=== PATIENT | male | born 1965 | race African-American/Black ===

== ENCOUNTER 2019-07-29 08:27 | Inpatient (IN) | payer OTHER ==
[~2019-07-29] VITALS: Ht 185.4 cm; Wt 182.7 kg
[~2019-07-29 08:27] MED LIST: CLON0.2T; GLIP-218; METF-370
[2019-07-29] MEDS ORDERED: CLINDAMYCIN 900MG IV 50 ML IV ONE (09:00)
[2019-07-29] MEDS ORDERED: PIPERACILLIN-TAZOB 3.375GM 100 ML IV ONE (09:00)
[2019-07-29] MEDS ORDERED: SODIUM CHLORIDE 0.9% 1,000 ML IV ONE ×2 (09:00)
[2019-07-29 09:43] LABS: Basophils # (auto) 0 uL; Eosinophils # (auto) 0.1 uL; Hematocrit 38.1 % (41.0-53.0); Lymphocytes # (auto) 0.5 uL; Monocytes # (auto) 0.3 uL; Neutrophils % (auto) 83.5 % (37.0-80.0); Nucleated Red Blood Cells % 0.1 %
[2019-07-29 09:45] LABS: Basophils % (auto) 0.8 % (0.0-2.0); Eosinophils % (auto) 2.2 % (0.0-7.0); Hemoglobin 11.8 g/dL (13.5-17.5); Lymphocytes % (auto) 8.4 % (10.0-50.0); Mean Corpuscular Hemoglobin 23.1 pg (28.0-32.0); Mean Corpuscular Hgb Conc. 30.8 g/dL (32.0-36.0); Mean Corpuscular Volume 74.9 fL (80.0-100.0); Monocytes % (auto) 5.1 % (0.0-12.0); Platelet Count (auto) 153 10^3/uL (140-450); Red Blood Cells 5.09 10^6/uL (4.5-5.90); Red Cell Distribution Width 18.6 % (11.8-14.3)
[2019-07-29 10:00] LABS: Alanine Aminotransferase 35 U/L (16-61); Albumin 2.8 g/dL (3.4-5.0); Anion Gap 6 (5-15); Aspartate Aminotransferase 31 U/L (15-37); Blood Urea Nitrogen 15 mg/dL (7-18); Calcium 8.2 mg/dL (8.5-10.1); Carbon Dioxide 28 mmol/L (21-32); Chloride 106 mmol/L (98-107); GFR African American 92 mL/min; GFR Non-African American 76 mL/min; Glucose 106 mg/dL (74-106); Potassium 4.1 mmol/L (3.5-5.1); Sodium 140 mmol/L (136-145)
[2019-07-29 10:04] LABS: Alkaline Phosphatase 81 U/L (45-117); Bilirubin, Total 0.7 mg/dL (0.2-1.0); Total Protein 8.1 g/dL (6.4-8.2)
[2019-07-29 10:05] LABS: INR 1.11 (0.9-1.15); Partial Thromboplastin Time 30.2 sec (23.64-32.05)
[2019-07-29] MEDS ORDERED: ACETAMINOPHEN 500 MG TAB PO PRN (11:30)
[2019-07-29] MEDS ORDERED: VANCOMYCIN PER PHARMACY 0 MG IV SCH (11:30)
[2019-07-29] MEDS ORDERED: NITROGLYCERIN 0.4 MG SL TAB SL PRN (11:30)
[2019-07-29] MEDS ORDERED: MORPHINE SULF INJ 2 MG/ML SYRINGE 1ML IV PRN ×2 (11:30)
[2019-07-29] MEDS ORDERED: hydrALAZINE HCL 20 MG/ML VL IV PRN (11:45)
[2019-07-29] MEDS: PIPERACILLIN-TAZOB 3.375GM 100 ML IV SCH ×2 (12:00→18:40)
[2019-07-29] MEDS ORDERED: FUROSEMIDE 40 MG/4 ML VIAL IV ONE (12:15)
[2019-07-29 12:26] LABS: Urine Bacteria NONE SEEN /hpf (None Seen); Urine Blood 1+ /uL (Negative); Urine Mucus FEW (None Seen); Urine Specific Gravity 1.017 (1.001-1.035); Urine WBC 15 /hpf (0 - 3)
[2019-07-29] MEDS: VANCOMYCIN 1GM/250ML 250 ML IV SCH ×2 (16:04→23:33)
--- NOTE | 2019-07-29 17:16 | NUR ---
WOUND CARE NOTE: Wound care in to see patient per wound care request regarding "Diabetic Foot Ulcer" that are noted present on admission. Patient is 53 y/o male with admitting diagnosis of RLE Cellulitis. Patient with history of htn, DM. Patient is resting in ER bed #15. He's awake, alert and oriented. Patient is in no stated pain at this time. He's self turn and reposition and his Missael score is 17. Patient reported that he moves around at home using cane. Skin/wound assessment done with the assistance of patient's nurse, JOSEP Curry. Noted patient's Rt. foot stump has open full thickness wound measuring 4x1.5x0.5cm. Wound bed is dusky red with yellow rolled hyperkeratotic wound edges, dark hyperpigmented skin to dorsal aspect of R foot, minimal seropurulent drainage noted on old dressing, foul odor noted. Patient reported that he had Rt. foot partial amputation two years ago in [place], since then his Rt. foot stump wound has not totally healed. Cleansed patient's Rt foot wound with wound cleanser, patted dry with gauze, fill wound cavity with 1 inch iodoform packing strips, covered with abd pad, wrapped with Kerlix and secured with tape. Patient denies any other wound. Patient tolerated well. Photograph of patient's R foot wound are taken for reference. RECOMMENDATION: Nursing to continue Daily/PRN dressing change to R Foot wound per MD order,Podiatry consult, Dietary consult, elevate affected extremity on pillows, continue monitoring by wound care while patient is hospitalized. Addendum: 07/29/19 at 1839 by Saloni Morfin RN Amended: Links added.
[2019-07-29 21:20] VITALS: BP 106/63
--- NOTE | 2019-07-29 21:20 | NUR ---
Telemetry admit from ER KURT REYNA admitted to Telemetry unit. Patient oriented to STACY MAYBERRY, RN primary RN, unit, room, bed, and unit policies regarding patient care and visiting hours. Patient now on continuous telemetry monitoring, tele box #54 and telemetry reading on arrival to unit is SR. Patient placed on bedside oxygen, weighed by bed scale and encouraged to call if they need something. All questions and concerns addressed, patient verbalized understanding. Dressing to right foot is CDI. 20g IV in right upper chest intact and patent. Dressing reinforced.
--- NOTE | 2019-07-29 21:50 | NUR ---
Excess moisture noted in ABD folds. Area cleansed and dried. Antifungal cream applied. Patient educated on keeping the area clean and dry to maintain skin integrity. Patient verbalizes understanding.
[2019-07-29] MEDS: CARVEDILOL 3.125 MG TAB PO SCH (22:33)
[2019-07-29] MEDS: ENALAPRIL MALEATE 2.5 MG TAB PO SCH (22:33)
[2019-07-29] MEDS: FAMOTIDINE 20 MG TAB PO SCH (22:34)
[2019-07-30] MEDS: PIPERACILLIN-TAZOB 3.375GM 100 ML IV SCH ×4 (00:45→18:10)
[2019-07-30] MEDS ORDERED: LISI30TA36 PO (01:34)
[2019-07-30 04:30] VITALS: BP 135/65
[2019-07-30 05:52] LABS: Eosinophils # (auto) 0.1 uL; Hemoglobin 11.5 g/dL (13.5-17.5); Lymphocytes # (auto) 0.4 uL; Monocytes # (auto) 0.3 uL; Neutrophils # (auto) 4.6 uL; White Blood Cell 5.5 10^3/uL (4.4-10.8)
[2019-07-30 05:54] LABS: Basophils # (auto) 0.1 uL; Eosinophils % (auto) 2.5 % (0.0-7.0); Hematocrit 37.8 % (41.0-53.0); Lymphocytes % (auto) 7.1 % (10.0-50.0); Mean Corpuscular Hemoglobin 23.1 pg (28.0-32.0); Mean Corpuscular Hgb Conc. 30.6 g/dL (32.0-36.0); Mean Corpuscular Volume 75.6 fL (80.0-100.0); Neutrophils % (auto) 83.4 % (37.0-80.0); Platelet Count (auto) 148 10^3/uL (140-450); Red Blood Cells 4.99 10^6/uL (4.5-5.90); Red Cell Distribution Width 18.2 % (11.8-14.3)
[2019-07-30 06:13] LABS: Potassium 4.5 mmol/L (3.5-5.1)
[2019-07-30 06:16] LABS: BUN/Creatinine Ratio 11.5
[2019-07-30] MEDS: VANCOMYCIN 1GM/250ML 250 ML IV SCH ×3 (06:50→22:52)
--- NOTE | 2019-07-30 08:53 | NUR ---
PT RESTING IN BED, NO DISTRESS NOTED. PT REPORTS 4/10 PAIN IN BILATERAL EXTREMITIES, 2 PLUS NON PITTING EDEMA NOTED. KERLIX BANDAGE NOTED ON RLE. PT REPORTS HE IS ABLE TO AMBULATE TO BATHROOM. WILL CONTINUE TO MONITOR.
[2019-07-30 09:00] VITALS: BP 116/55
[2019-07-30] MEDS ORDERED: INFLUENZA QUAD 2019-2020 0.5ml SYRG IM ONE (10:00)
[2019-07-30 11:08] LABS: % Iron Saturation 18.3 % (20-55)
[2019-07-30] MEDS: FUROSEMIDE 20 MG/2 ML VIAL IV SCH (11:13)
[2019-07-30] MEDS: FAMOTIDINE 20 MG TAB PO SCH ×2 (11:15→21:35)
[2019-07-30] MEDS: ENALAPRIL MALEATE 2.5 MG TAB PO SCH ×2 (11:18→21:34)
[2019-07-30] MEDS: CARVEDILOL 3.125 MG TAB PO SCH ×2 (11:18→21:34)
--- NOTE | 2019-07-30 11:18 | NUR ---
Nutrition consult/assessment Notes Please see attached link for complete assessment Est. Needs ABW 125 [id number] kcal (17-20 kcal/kgBW), 125-137 gms pro (1.0-1.1 gms/kgBW r/t wounds). Will continue to monitor pertinent labs and reassess nutrient need prn Addendum: 07/30/19 at [address] Amended: Links added.
[2019-07-30 11:30] LABS: Protein, Urine 440.3 mg/dL (0.0-11.9)
--- NOTE | 2019-07-30 12:37 | NUR ---
CARDIO CONSULT CALLED IN TODAY, ASKED [facility] PSYCHIATRIST TO RECALL PODIATRY CONSULT. CALLED PICC NURSE, PICC NURSE REPORTS SHE WILL SEE PATIENT TODAY. CALLED PBX AND PAGED DR KUMAR TO REQUEST ORDERS FOR ACCUCHECKS, AWAITING CALL BACK.
[2019-07-30 13:00] VITALS: BP 134/75
--- NOTE | 2019-07-30 13:36 | NUR ---
CALLED WOUND CARE NURSE ASHLEY FOR WOUND SUPPLIES, NO ANSWER, LEFT MESSAGE, AWAITING CALL BACK. Addendum: 07/30/19 at 1340 by TOBIN MADRIGAL RN NEED IODOFORM FOR WOUND CARE PER WOUND CONSULT NOTE.
--- NOTE | 2019-07-30 14:09 | NUR ---
PT REQUESTS BEDDING CHANGE AND BATHROOM CLEANED. CHANGED BEDDING AND CHUCKS, CALLED PBX AND PAGED EVS TO CLEAN BATHROOM. 850 MLS CLEAR STRAW URINE EMPTIED FROM URINAL. PT UPDATED ON POC. PT SITTING IN CHAIR AT BEDSIDE, WILL CONTINUE TO MONITOR.
--- NOTE | 2019-07-30 14:15 | NUR ---
CALLED PBX AND PAGED DR KUMAR, AWAITING CALL BACK.
--- NOTE | 2019-07-30 14:16 | NUR ---
DR KUMAR CALLED BACK, NEW ORDERS FOR MILD SLIDING SCALE ACHS.
[2019-07-30] MEDS ORDERED: DEXTROSE (50%) 50ML SYRG IV PRN (14:30)
--- NOTE | 2019-07-30 15:11 | NUR ---
WENT TO GET CONSENT FORM SIGNED BY PATIENT FOR PICC LINE, PER PICC NURSE REQUEST. EXPLAINED RISKS AND BENEFITS, AND THE NEED FOR THE PICC LINE FOR HOME ABX. PICC NURSE PRESENT. PT REPORTS HE HAS HAD A PICC LINE BEFORE. PT REPORTS HE DOES NOT WANT TO GO HOME WITH A PICC LINE, BUT WOULD LIKE TO GO TO SNF. PT REPORTS HE DOES NOT WANT PICC LINE AT THIS TIME. PT REPORTS HE WILL DECIDE ON PICC LINE ONCE HE KNOWS WHERE HE WILL GO ON DISCHARGE.
--- NOTE | 2019-07-30 15:30 | NUR ---
IV ACCESS OBTAINED Pt is refusing PICC line placement at this time. States he will decide on consenting for PICC line placement upon discharge from hospital, depending on plan of care at discharge. Primary RN requesting assistance with new IV access at this time. 20g PIV inserted to basilic vein of right upper arm using ultrasound guidance. Successful on first attempt. Sterile technique utilized. Sterile tegaderm occlusive dressing placed, draws blood and flushes easily with NS. Will follow up with pt for update on plan of care.
[2019-07-30 17:00] VITALS: BP 129/57
[2019-07-30] MEDS: InsuLIN REG 1unit/0.01ml Soln (100units/ml) SC SCH ×2 (17:00→21:41)
--- NOTE | 2019-07-30 17:45 | NUR ---
WOUND CARE PERFORMED CALLED [employer] AND REQUESTED IODOFORM. ITEM BROUGHT UP. PT WOUND RIGHT FOOT CLEANSED WITH WOUND CLEANSER, PATTED DRY WITH 4X4 GAUZE, PACKED WITH IODOFORM AND COVERED WITH ABD AND KERLIX PER WOUND CARE. PT TOLERATED PROCEDURE WELL. PT REPORTS HE DOES NOT WANT PAIN MEDICATION AT THIS TIME, WILL CONTINUE TO MONITOR.
[2019-07-30] MEDS: ACCU-CHEK COMFORT CURVE STRIP VI SCH ×2 (18:10→21:35)
--- NOTE | 2019-07-30 19:29 | NUR ---
Opening shift note Patient is sitting at bedside. On 2L NC with no C/O SOB. Reports 5/10 pain in left knee. Pain management options discussed with patient; to be medicated according to orders. Dressing to right foot is CDI. 20g IV in right upper arm intact and patent, currently infusing Zosyn per orders. Patient is ambulatory with the use of a walker or cane. Both are present at the bedside. POC discussed with patient who verbalizes understanding. Bed is in low locked position with side rails up x2. Call light is within reach and patient encouraged to call for assistance when needed. Will continue to monitor for changes PRN.
[2019-07-30] MEDS: HYDROcodone-ACET 5/325MG TAB PO PRN (20:37)
[2019-07-30 21:14] VITALS: BP 144/75
[2019-07-31] MEDS: PIPERACILLIN-TAZOB 3.375GM 100 ML IV SCH ×4 (00:27→17:54)
[2019-07-31 04:54] VITALS: BP 106/57
[2019-07-31] MEDS: VANCOMYCIN 1GM/250ML 250 ML IV SCH ×3 (07:03→23:07)
[2019-07-31] MEDS: InsuLIN REG 1unit/0.01ml Soln (100units/ml) SC SCH ×4 (07:03→21:48)
[2019-07-31] MEDS: ACCU-CHEK COMFORT CURVE STRIP VI SCH ×4 (07:03→21:49)
[2019-07-31 07:04] LABS: Basophils # (auto) 0 uL; Basophils % (auto) 0.8 % (0.0-2.0); Eosinophils # (auto) 0.1 uL; Eosinophils % (auto) 2.4 % (0.0-7.0); Hematocrit 36.9 % (41.0-53.0); Hemoglobin 11.4 g/dL (13.5-17.5); Lymphocytes # (auto) 0.4 uL; Lymphocytes % (auto) 7.9 % (10.0-50.0); Mean Corpuscular Hemoglobin 23.3 pg (28.0-32.0); Mean Corpuscular Hgb Conc. 30.8 g/dL (32.0-36.0); Mean Corpuscular Volume 75.5 fL (80.0-100.0); Monocytes # (auto) 0.4 uL; Monocytes % (auto) 7.8 % (0.0-12.0); Neutrophils % (auto) 81.1 % (37.0-80.0); Platelet Count (auto) 135 10^3/uL (140-450); Red Blood Cells 4.88 10^6/uL (4.5-5.90); Red Cell Distribution Width 18.3 % (11.8-14.3); White Blood Cell 4.9 10^3/uL (4.4-10.8)
[2019-07-31 07:12] LABS: BUN/Creatinine Ratio 10.8; Potassium 4.4 mmol/L (3.5-5.1)
--- NOTE | 2019-07-31 07:45 | NUR ---
Opening Shift Note Received report on the patient. Lying in bed sleeping. Patient shows no signs of distress at this time. Discussed plan of care with the patient. Bed is in lowest position, side rails up x2, and the call light is within reach. Will continue to monitor.
[2019-07-31 08:00] VITALS: BP 143/74
[2019-07-31 09:00] VITALS: BP 125/70
--- NOTE | 2019-07-31 09:25 | NUR ---
Left/Right Heart Cath Su in [employer] [employer] called and said they could not do the procedure because the patient is too large. Their weight limit is 350lbs and the patient currently weighs 409.64.
[2019-07-31] MEDS: FAMOTIDINE 20 MG TAB PO SCH ×2 (09:46→21:47)
[2019-07-31] MEDS: ENALAPRIL MALEATE 2.5 MG TAB PO SCH ×2 (09:46→21:48)
[2019-07-31] MEDS: CARVEDILOL 3.125 MG TAB PO SCH ×2 (09:46→21:48)
[2019-07-31] MEDS: FUROSEMIDE 20 MG/2 ML VIAL IV SCH (09:47)
--- NOTE | 2019-07-31 10:22 | NUR ---
V/Q Scan unable to do the V/Q scan because of the patient's size (weight).
[2019-07-31 13:00] VITALS: BP 125/61
[2019-07-31 17:00] VITALS: BP 116/72
--- NOTE | 2019-07-31 17:26 | NUR ---
IV removal 20 G rght upper chest IV DC'd with clean sterile technique, catheter fully intact. Pressure dressing applied to site. Patient tolerated well.
--- NOTE | 2019-07-31 17:27 | NUR ---
IV removal Right upper arm midline DC'd with clean sterile technique, catheter fully intact. Pressure dressing applied to site. Patient tolerated well.
--- NOTE | 2019-07-31 17:28 | NUR ---
IV insertion IV access obtained, via clean sterile technique by inserting 22 gauge catheter at the right forearm after 1 attempt. IV secured properly. No trauma to site. Patient tolerated well.
--- NOTE | 2019-07-31 19:28 | NUR ---
Opening Shift Note Assumed care of patient, awake and alert x 4. No S/S of distress/SOB. Walker at bedside. Bed is in lowest position and locked. Call light within reach. Board updated. Tele box number matches monitor and leads are in correct placement. Instructed on POC and to call for assist PRN, will continue to monitor for changes Q1hr and PRN.
[2019-07-31 22:00] VITALS: BP 128/55
[2019-08-01] MEDS: PIPERACILLIN-TAZOB 3.375GM 100 ML IV SCH ×4 (00:24→19:07)
[2019-08-01 05:00] VITALS: BP 126/62
[2019-08-01] MEDS: VANCOMYCIN 1GM/250ML 250 ML IV SCH ×3 (06:39→22:33)
[2019-08-01] MEDS: ACCU-CHEK COMFORT CURVE STRIP VI SCH ×4 (06:40→22:33)
[2019-08-01] MEDS: InsuLIN REG 1unit/0.01ml Soln (100units/ml) SC SCH ×4 (06:40→22:33)
[2019-08-01 08:00] VITALS: BP 143/74
--- NOTE | 2019-08-01 08:15 | NUR ---
Opening Shift Note Received report on the patient. Awake lying in bed. Patient shows no signs of distress at this time. Discussed plan of care with the patient. Bed in lowest position, side rails up x2, and the call light is within reach. Will continue to monitor.
[2019-08-01 09:00] VITALS: BP 130/75
[2019-08-01 10:43] LABS: BUN/Creatinine Ratio 10.6; Calcium 8.2 mg/dL (8.5-10.1); Potassium 4.3 mmol/L (3.5-5.1)
[2019-08-01] MEDS: FUROSEMIDE 20 MG/2 ML VIAL IV SCH (11:02)
[2019-08-01] MEDS: CARVEDILOL 3.125 MG TAB PO SCH ×2 (11:03→22:32)
[2019-08-01] MEDS: ENALAPRIL MALEATE 2.5 MG TAB PO SCH ×2 (11:03→22:32)
[2019-08-01] MEDS: FAMOTIDINE 20 MG TAB PO SCH ×2 (11:03→22:31)
[2019-08-01 13:00] VITALS: BP 121/76
[2019-08-01] MEDS: HYDROcodone-ACET 5/325MG TAB PO PRN (15:49)
[2019-08-01 17:18] VITALS: BP 144/76
--- NOTE | 2019-08-01 19:31 | NUR ---
Opening Shift Note Assumed care of patient, awake and alert x 4. No S/S of distress/SOB. Walker at bedside. Bed is in lowest position and locked. Call light within reach. Board updated. Tele box number matches monitor and leads are in correct placement. Dressing to right foot is clean, dry, and intact. Instructed on POC and to call for assist PRN, will continue to monitor for changes Q1hr and PRN.
[2019-08-01 22:00] VITALS: BP 153/84
[2019-08-02] MEDS: PIPERACILLIN-TAZOB 3.375GM 100 ML IV SCH ×3 (00:13→11:43)
[2019-08-02] MEDS: HYDROcodone-ACET 5/325MG TAB PO PRN ×2 (05:47→12:18)
[2019-08-02 06:04] VITALS: BP 139/70
[2019-08-02 06:24] LABS: Basophils # (auto) 0 uL; Eosinophils # (auto) 0.1 uL; Lymphocytes # (auto) 0.4 uL; Mean Corpuscular Hemoglobin 23.3 pg (28.0-32.0); Monocytes # (auto) 0.6 uL; Red Cell Distribution Width 17.8 % (11.8-14.3); White Blood Cell 6.2 10^3/uL (4.4-10.8)
[2019-08-02 06:29] LABS: Basophils % (auto) 0.4 % (0.0-2.0); Eosinophils % (auto) 2.2 % (0.0-7.0); Hematocrit 35.4 % (41.0-53.0); Lymphocytes % (auto) 6.3 % (10.0-50.0); Mean Corpuscular Hgb Conc. 31.1 g/dL (32.0-36.0); Monocytes % (auto) 10.1 % (0.0-12.0); Nucleated Red Blood Cells % 0.1 %; Platelet Count (auto) 135 10^3/uL (140-450); Red Blood Cells 4.72 10^6/uL (4.5-5.90)
[2019-08-02 06:42] LABS: Albumin 2.5 g/dL (3.4-5.0); BUN/Creatinine Ratio 14.6; Potassium 4.5 mmol/L (3.5-5.1)
[2019-08-02 06:45] LABS: Bilirubin, Total 1.4 mg/dL (0.2-1.0); Total Protein 7.1 g/dL (6.4-8.2)
[2019-08-02] MEDS: VANCOMYCIN 1GM/250ML 250 ML IV SCH (06:55)
[2019-08-02] MEDS: InsuLIN REG 1unit/0.01ml Soln (100units/ml) SC SCH ×3 (06:55→17:25)
[2019-08-02] MEDS: ACCU-CHEK COMFORT CURVE STRIP VI SCH ×3 (06:56→17:26)
[2019-08-02 09:00] VITALS: BP_SYST 124; BP_DIAS 65; BP_DIAS 71
[2019-08-02] MEDS: ENALAPRIL MALEATE 2.5 MG TAB PO SCH (10:55)
[2019-08-02] MEDS: CARVEDILOL 3.125 MG TAB PO SCH (10:56)
[2019-08-02] MEDS: FAMOTIDINE 20 MG TAB PO SCH (10:56)
[2019-08-02] MEDS ORDERED: ALBUTEROL SULF 2.5 MG/0.5ML(0.5%) NEB SOLN NEB SCH (12:00)
[2019-08-02] MEDS ORDERED: LEVOFLOXACIN 500MG 100 ML IV ONE ×2 (12:00→15:30)
[2019-08-02 13:00] VITALS: BP 128/68
[2019-08-02] MEDS: ALBUTEROL SULF 2.5 MG/0.5ML(0.5%) NEB SOLN NEB PRN (15:08)
[2019-08-02 16:33] VITALS: BP 128/68
[2019-08-02 16:38] VITALS: BP 112/79
[2019-08-02] MEDS ORDERED: PROMETHAZINE HCL 25 MG/ML 1ML IV PRN (18:00)
--- NOTE | 2019-08-02 18:00 | NUR ---
Received call back from sand control worker hospitalist Doctor Roderick. Doctor Roderick aware patient was vomiting and complaining of abdominal pain. New orders received see emr for orders.
--- NOTE | 2019-08-02 18:50 | NUR ---
Received call back from Doctor Roderick Ariza MD that per Radiology patient is to large for machine and they cant perform CT. New orders received see emr for orders.
[2019-08-02 19:09] LABS: Amylase 37 U/L (25-115); Lipase 70 U/L (73-393)
--- NOTE | 2019-08-02 19:30 | NUR ---
Respiratory note: PT ASSESSED FOR PRN MED NEB TX. HR 80, RR 18, SPO2 97% ON 2L NC. NO SIGNS OF ANY RESPIRATORY DISTRESS NOTED. ADVISED PT TO CALL IF TX IS NEEDED. RT NAME AND PAGER NUMBER WRITTEN ON PT'S BOARD.
--- NOTE | 2019-08-02 20:00 | NUR ---
received pt from day rn poc reviewed
[2019-08-02 22:00] VITALS: BP 124/70
[2019-08-03] MEDS: CARVEDILOL 3.125 MG TAB PO SCH ×3 (00:16→21:55)
[2019-08-03] MEDS: FAMOTIDINE 20 MG TAB PO SCH ×3 (00:16→21:55)
[2019-08-03] MEDS: ENALAPRIL MALEATE 2.5 MG TAB PO SCH ×3 (00:17→21:56)
[2019-08-03] MEDS: ACCU-CHEK COMFORT CURVE STRIP VI SCH ×5 (00:18→21:56)
[2019-08-03] MEDS: InsuLIN REG 1unit/0.01ml Soln (100units/ml) SC SCH ×5 (00:18→21:56)
[2019-08-03] MEDS: HYDROcodone-ACET 5/325MG TAB PO PRN ×2 (02:19→19:04)
[2019-08-03 05:00] VITALS: BP 123/63
[2019-08-03 07:50] VITALS: BP 131/68
[2019-08-03 09:00] VITALS: BP 131/68
[2019-08-03] MEDS: LEVOFLOXACIN 500MG 100 ML IV SCH (10:40)
[2019-08-03 12:57] VITALS: BP 126/82
[2019-08-03 17:00] VITALS: BP 115/63
--- NOTE | 2019-08-03 19:30 | NUR ---
Opening Shift Note Assumed care of patient, awake and alert. No S/S of distress. Instructed on POC and to call for assist PRN, will continue to monitor for changes Q1hr and PRN. Side rails up x2. Bed locked in lowest position. Call light within reach. Family at bedside.
--- NOTE | 2019-08-03 19:40 | NUR ---
Respiratory note: PT ASSESSED FOR PRN MED NEB TX. HR 78, RR 20, SPO2 95% ON 2L NC. NO SIGNS OF ANY RESPIRATORY DISTRESS NOTED. ADVISED PT TO CALL IF TX IS NEEDED. RT NAME AND PAGER NUMBER WRITTEN ON PT'S BOARD.
[2019-08-03 22:00] VITALS: BP 133/79
--- NOTE | 2019-08-04 03:06 | NUR ---
Full linen changed.
[2019-08-04 05:25] VITALS: BP 143/72
[2019-08-04] MEDS: InsuLIN REG 1unit/0.01ml Soln (100units/ml) SC SCH ×4 (06:49→22:15)
[2019-08-04] MEDS: ACCU-CHEK COMFORT CURVE STRIP VI SCH ×4 (06:49→22:15)
--- NOTE | 2019-08-04 07:30 | NUR ---
Endorsed care to day shift JOSEP Archer.
--- NOTE | 2019-08-04 07:30 | NUR ---
RECEIVED PT LYING IN BED AAOX4, PLEASANT AND COOPERATIVE AND VOICED NO C/O PAIN AND PT WAS IN NO DISTRESS. SHIFT ASSESSMENT DONE AND CHARTED. PLAN OF CARE, MEDS, TREATMENTS AND SAFETY DISCUSSED WITH PT AND PT VERBALIZED UNDERSTANDING. WILL CONTINUE TO MONITOR PT.
--- NOTE | 2019-08-04 07:35 | NUR ---
RECEIVED PT LYING IN BED SLEEPING COMFORTABLY AND WAS IN NO DISTRESS. PT EASILY AWAKENED WHEN SPOKEN TO AND VOICED NO C/O PAIN. SHIFT ASSESSMENT DONE AND CHARTED. PLAN OF CARE, MEDS, TREATMENTS AND SAFETY DISCUSSED WITH PT AND PT VERBALIZED UNDERSTANDING. PT'S BED WAS IN THE LOWEST POSITION WITH BRAKES ON, SIDERAILS UP X2 AND CALL LIGHT WITHIN PT'S REACH. WILL CONTINUE TO MONITOR PT.
[2019-08-04 08:20] VITALS: BP 105/53
[2019-08-04 09:00] VITALS: BP 105/53
[2019-08-04] MEDS: LEVOFLOXACIN 500MG 100 ML IV SCH (09:27)
[2019-08-04] MEDS: CARVEDILOL 3.125 MG TAB PO SCH ×2 (09:28→22:14)
[2019-08-04] MEDS: FAMOTIDINE 20 MG TAB PO SCH ×2 (09:29→22:14)
--- NOTE | 2019-08-04 09:50 | NUR ---
Respiratory note: HR 78, RR 16, SPO2 95% ON 2 L NC BS DIMINISHED. PRN MED NEB TX NOT INDICATED TA THIS TIME. NO SIGNS OR SYMPTOMS OF RESPIRATORY DISTRESS NOTED. PT INFORMED TO HIT CALL BUTTON IF FEELING SOB OR WHEEZING.
[2019-08-04] MEDS: ENALAPRIL MALEATE 2.5 MG TAB PO SCH ×2 (12:20→22:14)
--- NOTE | 2019-08-04 12:24 | NUR ---
Nutrition Follow-up Notes Wt.: 183.0 kg Pt was sleeping with no family by bedside. per records pt with cellulitis and on ABX. pt with no distress noted per nursing. pt is currently on CCHO 60 gm/meal diet with adequate PO of 100% x 4per RN doc Est. Needs ABW 125 [id number] kcal (17-20 kcal/kgBW), 125-137 gms pro (1.0-1.1 gms/kgBW r/t wounds). Will continue to monitor pertinent labs and reassess nutrient need prn Labs: No new labs today 08/02: GLU 135 H, CA 8.0 L, ALB 2.5 L Skin: Missael scale 17, mod risk, ppt with wounds/cellulitis per RN doc. refer to notes for details GI: Pt had 1 BM yesterday per online affiliate marketing manager. PES: Altered nutrition related lab values r/t current/chronic medical condition aeb hyperglycemias, mod hypoalb Decreased nutrient needs r/t adiposity aeb pt`s with BMI of 48.8 kgm2 Will continue to monitor PO intake, skin status, pertinent labs and weight trend. F/u in 3-5 days. Rec.: 1.) refer to CDE on DC. 2) consider MVI/C bid. 3) [id number] current plan of care
--- NOTE | 2019-08-04 12:59 | NUR ---
PT PATIENT REFUSED PT TODAY. JOSEP DOE WAS NOTIFIED. WILL TRY AGAIN TOMORROW. Addendum: 08/04/19 at 1300 by PHIL THOMSON PTT Amended: Links added.
[2019-08-04 13:00] VITALS: BP 133/64
--- NOTE | 2019-08-04 15:30 | NUR ---
DR. KUMAR WAS IN TO SEE PT. MADE AWARE THAT BONE SCAN CAN'T BE DONE BECAUSE OF PT'S WEIGHT. STATED THAT SHE WILL INFORM DR. BAPTISTE. LEFT NEW ORDERS.
[2019-08-04 17:00] VITALS: BP 128/71
[2019-08-04] MEDS: HYDROcodone-ACET 5/325MG TAB PO PRN (17:00)
--- NOTE | 2019-08-04 18:31 | NUR ---
ASSESSED PT @ THIS TIME FOR PRN MED NEB TX. PT IS AWAKE AND ALERT AND RESTING COMFORTABLY IN BED. HE STATES HIS BREATHING IS DOING FINE. NO DISTRESS NOTED. CURRENTLY ON 2L NC W/ SPO2 98%, HR 80 AND RR 20. BS ARE DIMINISHED T/O. HE IS AWARE TO CALL IF HE FEELS SOB.
[2019-08-04 22:00] VITALS: BP 130/71
[2019-08-05] MEDS: ALBUTEROL SULF 2.5 MG/0.5ML(0.5%) NEB SOLN NEB PRN (02:29)
--- NOTE | 2019-08-05 02:33 | NUR ---
WAS PAGED FOR PRN MED NEB TX. PT STATES HE FEELS SOME SOB. PRN MED NEB TX GIVEN @ THIS TIME.
[2019-08-05 05:00] VITALS: BP 132/69
[2019-08-05] MEDS: InsuLIN REG 1unit/0.01ml Soln (100units/ml) SC SCH ×4 (06:27→22:07)
[2019-08-05] MEDS: ACCU-CHEK COMFORT CURVE STRIP VI SCH ×4 (06:27→22:06)
--- NOTE | 2019-08-05 07:00 | NUR ---
OPENING NOTE PATIENT IN BED, AWAKE, ALERT AND ORIENTED, ABLE TO MAKE NEEDS KNOWN. ENCOURAGED PATIENT TO WORK WITH PT TODAY TO IMPROVE MOBILITY AND STRENGTH.. PATIENT C/O PAIN 03/05 WILL MEDICATE. UNLABORED BREATHING, NO S/O SOBB BED LOCKED AND ON LOWEST POSITION, CALL LIGHT WITH IN REACH. POC EXPLAINED TO PATIENT.
--- NOTE | 2019-08-05 07:42 | NUR ---
Endorsed care to day shift RN.
[2019-08-05] MEDS: LEVOFLOXACIN 500MG 100 ML IV SCH (08:58)
[2019-08-05] MEDS: FAMOTIDINE 20 MG TAB PO SCH ×2 (08:58→22:05)
[2019-08-05] MEDS: CARVEDILOL 3.125 MG TAB PO SCH ×2 (08:59→22:05)
[2019-08-05] MEDS: HYDROcodone-ACET 5/325MG TAB PO PRN (09:00)
[2019-08-05] MEDS: ENALAPRIL MALEATE 2.5 MG TAB PO SCH ×2 (09:00→22:06)
--- NOTE | 2019-08-05 09:00 | NUR ---
MEDICATIONS GIVEN, PATIENT COMFORTABLE, IV FLUSHED, WORKING PROPERTY. WILL CONTINUE TO MONITOR.
[2019-08-05 09:25] VITALS: BP 131/64
--- NOTE | 2019-08-05 09:50 | NUR ---
PATIENT REFUSED TO WORK WITH PT AT THIS TIME, WANTS TO TRY LATER AFTER LUNCH.
--- NOTE | 2019-08-05 11:30 | NUR ---
DR KUMAR HAD A LONG CONVERSATION WITH PATIENT REGARDING DISCHARGE . PATIENT STATED HE HAS NO ONE TO GO HOME TO, HE LIVES IN SOMEONE'S HOME, BUT THEY ARE NOT COMING BACK TO [place] UNTIL TOMORROW, SO HE IS ASKING FOR ONE MORE DAY TO MAKE PHONE CALLS AND TO MAKE ARRAIGNMENTS. DR OFFERED TO CALL HIS "FRIENDS" BUT PATIENT REFUSED TO GIVE ANY PHONE NUMBERS. EXPLAINED THE IMPACT THAT UNNECESSARY STAY IN THE HOSPITAL COULD PRESENT. PATIENT WAS UNEASY WITH THE IDEA OF LEAVING, HE CONTINUED TO SAY HE WILL CALL, BUT THE PERSON THAT HE STAYING WITH IT'S NOT AVAILABLE TILL TOMORROW. PATIENT AWARE OF DISCHARGE ORDERS FOR TOMORROW. ALSO EXPLAINED TO PT THE NEED TO WORK WITH PHYSICAL THERAPY. PATIENT STAYED " I WILL WORK WITH THEM AFTER LUNCH"
--- NOTE | 2019-08-05 11:30 | NUR ---
WOUND CARE NOTE: IN TO CHANGE DRESSING TO WOUND ON RIGHT FOOT/STUMP PER MD ORDER AND TAKE DISCHARGE PHOTO AT THIS TIME. WOUND TO RIGHT FOREFOOT/STUMP CLEANSED, PHOTOGRAPHED, DRESSED PER MD ORDER. PATIENT TO BE DISCHARGED WITH PM
[2019-08-05 12:35] VITALS: BP 130/62
[2019-08-05] MEDS ORDERED: CIPR-173 PO (12:49)
[2019-08-05] MEDS ORDERED: CAR3125T PO (12:51)
[2019-08-05 13:00] VITALS: BP 130/65
--- NOTE | 2019-08-05 13:45 | NUR ---
PHYSICAL THERAPIST GOT PATIENT UP, PATIENT DOES NOT HELP, HE STEPH STOOD UP ON THE SIDE OF THE BED. PT DID LEG EXERCISES.
--- NOTE | 2019-08-05 14:29 | NUR ---
ASSESSED PT FOR PRN MED NEB TX, PT HAD NC OFF WITH SPO2 89%, PLACED PT BACK ON 3L NC, NO SOB NOTED, HR 80, RR 18 WITH DIMINISHED BS. PT WAS NOTIFIED OF PRN MED NEB.
--- NOTE | 2019-08-05 15:33 | NUR ---
assessment Patient is a 54 year old male who is alert and oriented. Patients cognitive abilities are intact. Prior to admission patient lived home with a friend and functioned independently. Patient informed me he was able to care for his own ADLs prior to admission. Per patient he will return home to his prior living arrangements post discharge. Patient informed me he has a cane for home use. Patient informed me he will need help on discharge due to his swollen legs. Patient may benefit from home health on discharge. I informed patient he has a right to speak to a social sciences department chair regarding all care. I informed patient he has a right to participate in any and all discharge planning. Patient does not have a POA and advanced directive. I have offered patient information on POA and advanced directives. I informed the patient the advantages and benefits of having an Advanced Directive. Patient verbalized understanding and agreed to discharge plan. Addendum: 08/05/19 at 1601 by Shannon CORRIGAN Amended: Links added.
--- NOTE | 2019-08-05 16:59 | NUR ---
PATIENT RESTING, DENIES PAIN OR DISCOMFORT. UNLABORED BREATHING, POC EXPLAINED TO PATIENT, ENCOURAGED TO MOVE AND TO GET OUT OF BED WITH HELP. CALL LIGHT WITH IN REACH, BED ON LOWEST POSITION, SIDE RAILS ELEVATED X 2 FOR SAFETY.
[2019-08-05 17:07] VITALS: BP 111/66
--- NOTE | 2019-08-05 19:07 | NUR ---
Respiratory note: ASSESSED PT FOR PRN MED NEB TX. PT IS CURRENTLY ON 2 L/M NC: HR 84, RR 20, SPO2 96%. PT SHOWS NO S/S OF SOB OR RESPIRATORY DISTRESS. MED NEB TX NOT INDICATED AT THIS TIME. PT AWARE TO HAVE RT PAGED IF SOB OCCURS. WILL CONTINUE TO MONITOR
--- NOTE | 2019-08-05 19:13 | NUR ---
CARE ENDORSED TO ENVIRONMENTAL HEALTH TECHNOLOGISTBIOINFORMATICS SOFTWARE ENGINEER .
--- NOTE | 2019-08-05 19:14 | NUR ---
Opening Shift Note Assumed care of patient, awake and alert. No S/S of distress/SOB or pain. Instructed on POC and to call for assist PRN, will continue to monitor for changes Q1hr and PRN. Side rails up x2. Bed locked in lowest position. Call light within reach.
[2019-08-05 21:49] VITALS: BP 136/75
--- NOTE | 2019-08-05 23:00 | NUR ---
Patient had a Large Bowel movement via bed anguiano
[2019-08-06 05:35] VITALS: BP 147/79
[2019-08-06] MEDS: InsuLIN REG 1unit/0.01ml Soln (100units/ml) SC SCH ×3 (06:42→16:15)
[2019-08-06] MEDS: ACCU-CHEK COMFORT CURVE STRIP VI SCH ×3 (06:45→16:16)
--- NOTE | 2019-08-06 07:00 | NUR ---
OPENING NOTE PATIENT AWAKE, ALERT AND ORIENTED, UNLABORED BREATHING, DENIES PAIN OR DISCOMFORT. BED ON LOWEST POSITION, CALL LIGHT WITH IN REACH. WILL CONTINUE TO MONITOR
--- NOTE | 2019-08-06 07:21 | NUR ---
Endorsed care to day shift RN.
[2019-08-06] MEDS ORDERED: CEFEPIME 1 GM in SODIUM CHL 0.9% 50 ML IV ONE (08:00)
--- NOTE | 2019-08-06 08:00 | NUR ---
PICC LINE ORDER CANCELLED SPOKE WITH PRIMARY RN CYRIL TO CLARIFY IF PATIENT STILL NEED PICC LINE. STATES SHE WILL CANCEL THE ORDER, STATES PT IS GOING HOME WITH P.O ANTIBIOTICS AND WILL NOT NEED A PICC LINE PRIOR DISCHARGE.
--- NOTE | 2019-08-06 08:35 | NUR ---
Respiratory note: PT AWAKE, AND ALERT. NO RESPIRATORY DISTRESS NOTED. SPO2 95% ON RA, HR 83, RR 18, BS CLEAR BILATERALLY. PRN MEDNEB TX NOT INDICATED AT THIS TIME. PT INFORMED TO PUSH CALL BUTTON IF INCREASED WOB, SOB, OR WHEEZING OCCURS.
[2019-08-06 09:00] VITALS: BP 143/95
[2019-08-06] MEDS: HYDROcodone-ACET 5/325MG TAB PO PRN (09:28)
[2019-08-06] MEDS: FAMOTIDINE 20 MG TAB PO SCH (09:28)
[2019-08-06] MEDS: CARVEDILOL 3.125 MG TAB PO SCH ×2 (09:28→10:28)
[2019-08-06] MEDS: ENALAPRIL MALEATE 2.5 MG TAB PO SCH (09:29)
--- NOTE | 2019-08-06 09:30 | NUR ---
ANTIBIOTIC DOSE GIVEN, PATIENT AWARE OF DISCHARGE ORDERS, HE WILL BE PICKED UP LATER THIS AFTERNOON. PER PATIENT, HE SPOKED TO HIS FRIEND AND THEY ARE AVAILABLE TO GET HIM TODAY.
--- NOTE | 2019-08-06 09:35 | NUR ---
AWAITING FOR PHARMACY TO SEND THE DOSE OF MAXIPIME.
[2019-08-06] MEDS ORDERED: ENOXAPARIN SOD 40 MG/0.4 ML SYRINGE SC SCH (10:00)
--- NOTE | 2019-08-06 13:01 | NUR ---
ALL DISCHARGE PAPERS GIVEN TO PATIENT AND EXPLAINED FOLLOW UP. PRESCRIPTION HANDED TO HIM, EACH MEDICATION EXPLAINED. PATIENT VERBALIZED UNDERSTANDING OF ALL INFORMATION. IV REMOVED FROM LEFT WRIST, CATHETER INTACT. TELE MONITOR REMOVED FROM PATIENT, SENT TO ICU. PATIENT REMAINS IN BED, AWAITING HIS RIDE. CALL LIGHT WITH IN REACH FOR SAFETY, BED ON THE LOWEST POSITION FOR SAFETY. PICTURES OF THE RIGHT FOOT WHERE TAKEN ON 08/05/19 BY WOUND NURSE. PATIENT COMFORTABLE, UNLABORED BREATHING. WILL CONTINUE TO MONITOR.
[2019-08-06 13:14] VITALS: BP 124/86
--- NOTE | 2019-08-06 14:13 | NUR ---
PATIENT IN BED, UNLABORED BREATHING. DENIES DISCOMFORT. WILL CONTINUE TO MONITOR.
--- NOTE | 2019-08-06 15:03 | NUR ---
PT REFUSED PHYSCIAL THERAPY. JOSEP ANGEL WAS NOTIFIED. Addendum: 08/06/19 at 1504 by PHIL THOMSON PTT Amended: Links added.
--- NOTE | 2019-08-06 17:07 | NUR ---
PATIENT HAS BEEN DISCHARGED FOR MANY HRS NOW, WE ARE JUST WAITING FOR HIS FRIENDS TO PICK HIM UP. CHARGE NURSE AWARE.
--- NOTE | 2019-08-06 18:34 | NUR ---
Patient left the hospital with friend. Two security officers and RN took patient to the car in a wheeled chair. It took all of us to put patient in the car safely, sit belt on, the door was closed and they drove away. patient was alert, oriented, no complains of pain, no shortness of breath. He took all his belongings including shoe and special boot for right foot, friend took his cell phone and electrical high tension tester. Friend said she will drop him off at [facility]. Patient had with him all discharge notes.
== END 2019-08-06 18:30 | disposition home or self-care (01) | DRG 637 ==
LOC: ER 08:28 → TELE 08:29 → TELE-WESTW 21:26
PROVIDERS: ADMIT Nurse Practitioner Acute Care; ATTEND Internal Medicine Nephrology
DX: E11.69 Type 2 diabetes mellitus with other specified complication (principal); I50.33 Acute on chronic diastolic (congestive) heart failure; Q25.6 Stenosis of pulmonary artery; M86.171 Other acute osteomyelitis, right ankle and foot; L03.115 Cellulitis of right lower limb; Z68.43 Body mass index [BMI] 50.0-59.9, adult; E11.621 Type 2 diabetes mellitus with foot ulcer; L97.519 Non-pressure chronic ulcer of other part of right foot with unspecified severity; E66.01 Morbid (severe) obesity due to excess calories; D50.9 Iron deficiency anemia, unspecified; I27.20 Pulmonary hypertension, unspecified; I11.0 Hypertensive heart disease with heart failure; E88.09 Other disorders of plasma-protein metabolism, not elsewhere classified; Z23 Encounter for immunization; Z79.84 Long term (current) use of oral hypoglycemic drugs; Z89.439 Acquired absence of unspecified foot; Z89.431 Acquired absence of right foot
CPT/HCPCS: 36415; 36600; 71045; 73620; 73700; 74022; 80048; 80053; 80061; 80202; 81001; 82150; 82570; 82805; 82962; 83036; 83540; 83550; 83605; 83690; 84156; 84484; 85025; 85610; 85730; 87040; 87077; 87186; 87205; 93306; 93926; 93970; 94640; 96365; 96367; 96375; 97110; 97163; 97530; 99291; G0378; J1815; J1956; J2543; J3490